=== PATIENT | male | born 1960 | race Caucasian/White ===

== ENCOUNTER → 2021-05-26 | Outpatient (CLI) | payer BC ==
[~2021-05-26] MED LIST: CARI350T PO; GABA-827 PO; HYDR-3248 PO; METF500T17 PO
[2021-05-26 13:37] LABS: BASOPHILS % (AUTO) 1 % (0-1); EOSINOPHILS % (AUTO) 1 % (1-7); LYMPHOCYTES % (AUTO) 33 % (22-44); MEAN CORPUSCULAR HEMOGLOBIN 32.6 pg (27.5-34.5); MEAN CORPUSCULAR HGB CONC 34.1 g/dL (33.2-36.2); MEAN PLATELET VOLUME 7.8 fL (7.4-10.4); MONOCYTES % (AUTO) 6 % (2-9); NEUTROPHILS % (AUTO) 59 % (42-75); PLATELET COUNT 265 x10^3/uL (130-400); RED BLOOD COUNT 4.52 x10^6/uL (4.38-5.82); RED CELL DISTRIBUTION WIDTH 13.6 % (9.4-14.8)
[2021-05-26 13:39] LABS: MICROSCOPIC NOT IND
[2021-05-26 13:49] LABS: CHLORIDE 106 mmol/L (98-107); INTERNATIONAL NORMALIZED RATIO 1.02 (0.93-1.1); PROTHROMBIN TIME 10.9 Seconds (9.6-11.5)
[2021-05-26 14:00] LABS: ALANINE AMINOTRANSFERASE 17 U/L (12-78); ALBUMIN 3.9 g/dL (3.4-5.0); ALKALINE PHOSPHATASE 67 U/L (45-117); ANION GAP 4 mmol/L (5-15); BILIRUBIN,TOTAL 0.4 mg/dL (0.2-1.0); CALCIUM 9.4 mg/dL (8.5-10.1); CREATININE 1.02 mg/dL (0.7-1.3); TOTAL PROTEIN 7.7 g/dL (6.4-8.2)
== END | disposition home or self-care (01) ==
LOC: STAR 12:37
PROVIDERS: ATTEND Neurological Surgery
DX: Z01.810 Encounter for preprocedural cardiovascular examination (principal); Z01.811 Encounter for preprocedural respiratory examination; Z01.812 Encounter for preprocedural laboratory examination; M51.36 Other intervertebral disc degeneration, lumbar region; M48.061 Spinal stenosis, lumbar region without neurogenic claudication; R79.1 Abnormal coagulation profile; R82.90 Unspecified abnormal findings in urine; R94.31 Abnormal electrocardiogram [ECG] [EKG]; M99.13 Subluxation complex (vertebral) of lumbar region; M51.37 Other intervertebral disc degeneration, lumbosacral region; R00.1 Bradycardia, unspecified
CPT/HCPCS: 36415; 71046; 72110; 80053; 81003; 85025; 85610; 85730; 93005

== ENCOUNTER 2021-05-31 05:32 | Inpatient (IN) | payer BC ==
[2021-05-29 10:24] LABS: ANION GAP 4 mmol/L (5-15); CALCIUM 9.2 mg/dL (8.5-10.1); CHLORIDE 107 mmol/L (98-107)
[2021-05-29 10:27] LABS: CREATININE 0.93 mg/dL (0.7-1.3)
[~2021-05-31] VITALS: Ht 180.3 cm; Wt 82.8 kg
[2021-05-31] MEDS ORDERED: EPINEPHRINE 1 MG/ML, 1ML ONE (06:00)
[2021-05-31] MEDS ORDERED: THROMBIN 20,000 UNIT VIAL TP ONE (06:00)
[2021-05-31] MEDS ORDERED: CEFAZOLIN 1,000 MG ONE ×2 (06:00→08:35)
[2021-05-31] MEDS ORDERED: BUPIVACAINE/PF 0.5% ONE (06:00)
[2021-05-31] MEDS ORDERED: GENTAMICIN 80 MG/2 ML ONE (06:00)
[2021-05-31 06:23] VITALS: BP 135/84
[2021-05-31] MEDS ORDERED: MIDAZOLAM 1 MG/ML, 2ML ONE (07:05)
[2021-05-31] MEDS ORDERED: FENTANYL PF 250 MCG/5ML ONE (07:05)
[2021-05-31] MEDS ORDERED: PROPOFOL 100 ML ONE (07:18)
[2021-05-31] MEDS ORDERED: THROMBIN 5,000 UNIT VIAL TP ONE (07:49)
[2021-05-31] MEDS ORDERED: CEFAZOLIN 1,000 MG IVPB ONE (07:49)
[2021-05-31] MEDS ORDERED: BUPIVACAINE/PF-EPI 0.5% 1:200K INFIL ONE (07:49)
[2021-05-31] MEDS ORDERED: GENTAMICIN 80 MG/2 ML IV ONE (07:49)
[2021-05-31] MEDS ORDERED: ROCURONIUM 10MG/ML,5ML ONE (08:35)
[2021-05-31] MEDS ORDERED: ONDANSETRON 2MG/ML, 2ML ONE (08:35)
[2021-05-31] MEDS ORDERED: NEOSTIGMINE 1 MG/ML, 10ML ONE (08:35)
[2021-05-31] MEDS ORDERED: GLYCOPYRROLATE 0.2MG/1ML, 5ML ONE (08:35)
[2021-05-31] MEDS ORDERED: PROPOFOL 10 MG/ML, 20ML ONE (08:35)
[2021-05-31] MEDS ORDERED: DEXAMETHASONE 4 MG/ML, 1ML ONE (08:35)
[2021-05-31] MEDS ORDERED: SUCCINYLCHOLINE 20 MG/ML, 10ML ONE (08:35)
[2021-05-31] MEDS ORDERED: OXYcodone 5 MG/5 ML ORAL.SOL UDC ONE (08:52)
[2021-05-31] MEDS ORDERED: FENTANYL PF 100 MCG/2ML ONE (08:52)
[2021-05-31] MEDS: FENTANYL PF 100 MCG/2ML IV PRN ×2 (08:55→09:12)
[2021-05-31] MEDS ORDERED: hydrALAzine 20 MG/ML, 1ML IV PRN (09:00)
[2021-05-31] MEDS ORDERED: PHARMACY MAY ADJ FOR RENAL FX MC PRN (09:00)
[2021-05-31] MEDS ORDERED: LORazepam 2 MG/ML, 1ML IVPush PRN (09:00)
[2021-05-31] MEDS ORDERED: PROMETHAZINE 25 MG/ML, 1ML IM PRN (09:00)
[2021-05-31] MEDS ORDERED: MAGNESIUM HYDROXIDE 8%, 30ML UDC PO PRN (09:00)
[2021-05-31] MEDS ORDERED: OXYcodone 5 MG/5 ML ORAL.SOL UDC PO PRN (09:00)
[2021-05-31] MEDS ORDERED: MEPERIDINE/PF 25MG/0.5ML IVPush PRN (09:00)
[2021-05-31] MEDS ORDERED: ONDANSETRON 2MG/ML, 2ML IVPush PRN (09:00)
[2021-05-31] MEDS ORDERED: METHOCARBAMOL 1,000 MG in DEXTROSE 5% 100 ML IV ONE (09:00)
[2021-05-31] MEDS ORDERED: LABETALOL 5MG/ML, 20ML IVPush PRN (09:00)
[2021-05-31] MEDS ORDERED: LABETALOL 5MG/ML, 20ML IV PRN (09:00)
[2021-05-31] MEDS ORDERED: HYDROmorphone 1 MG/ML, 1ML INJ IVPush PRN (09:00)
[2021-05-31] MEDS ORDERED: DIPHENHYDRAMINE 50 MG CAPSULE PO PRN (09:00)
[2021-05-31] MEDS ORDERED: OXYcodone/APAP 5/325MG TABLET PO PRN (09:00)
[2021-05-31] MEDS: SODIUM CHLORIDE FLUSH 10ML SYR IVF SCH ×2 (09:00→20:15)
[2021-05-31] MEDS ORDERED: BISACODYL 10 MG SUPP PR PRN (09:00)
[2021-05-31] MEDS ORDERED: ACETAMINOPHEN 325 MG TABLET PO PRN (09:00)
[2021-05-31] MEDS ORDERED: INSULIN REGULAR 100 UNITS/ML, 3ML VIAL SQ-INSULIN PRN (09:00)
[2021-05-31] MEDS ORDERED: MEPERIDINE/PF 25MG/ML,1ML ONE (09:12)
[2021-05-31] MEDS: GABAPENTIN 400 MG CAPSULE PO SCH ×3 (11:04→20:16)
[2021-05-31] MEDS: SENNA/DOCUSATE TABLET PO PRN (11:04)
[2021-05-31] MEDS: CARISOPRODOL 350 MG TABLET PO SCH ×3 (11:04→20:16)
[2021-05-31] MEDS: NS + 20MEQ KCL 1,000 ML IV SCH (11:04)
[2021-05-31] MEDS: metFORMIN 500 MG TABLET PO SCH ×2 (11:04→20:16)
[2021-05-31] MEDS: morphine SULFATE 10 MG/ML, 1ML IVPush PRN ×3 (11:12→23:49)
[2021-05-31 12:45] VITALS: BP 131/71
[2021-05-31] MEDS: HYDROcodone/APAP 10/325 MG TABLET PO PRN ×3 (13:17→22:29)
[2021-05-31] MEDS: CEFAZOLIN PMX 1GM/50ML 50 ML IVPB SCH ×2 (15:34→23:45)
[2021-05-31] MEDS ORDERED: METHOCARBAMOL 750 MG TABLET PO PRN (17:00)
[2021-05-31] MEDS: ONDANSETRON 2MG/ML, 2ML IVPush PRN (18:12)
[2021-05-31 20:18] VITALS: BP 120/70
[2021-06-01] MEDS: HYDROcodone/APAP 10/325 MG TABLET PO PRN ×6 (02:39→23:53)
[2021-06-01 02:53] VITALS: BP 125/73
[2021-06-01] MEDS: morphine SULFATE 10 MG/ML, 1ML IVPush PRN ×4 (04:59→22:54)
[2021-06-01] MEDS: NS + 20MEQ KCL 1,000 ML IV SCH ×2 (04:59→23:53)
[2021-06-01] MEDS: ENOXAPARIN 40 MG/0.4 ML SQ SCH ×2 (05:00→17:44)
[2021-06-01 05:48] LABS: BASOPHILS % (AUTO) 1 % (0-1); EOSINOPHILS % (AUTO) 0 % (1-7); LYMPHOCYTES % (AUTO) 30 % (22-44); MEAN CORPUSCULAR HEMOGLOBIN 32.7 pg (27.5-34.5); MEAN CORPUSCULAR HGB CONC 34.1 g/dL (33.2-36.2); MEAN PLATELET VOLUME 8.1 fL (7.4-10.4); MONOCYTES % (AUTO) 9 % (2-9); NEUTROPHILS % (AUTO) 60 % (42-75); PLATELET COUNT 242 x10^3/uL (130-400); RED BLOOD COUNT 4.22 x10^6/uL (4.38-5.82); RED CELL DISTRIBUTION WIDTH 13.1 % (9.4-14.8)
[2021-06-01 05:49] LABS: ANION GAP 7 mmol/L (5-15); CALCIUM 8.4 mg/dL (8.5-10.1); CHLORIDE 105 mmol/L (98-107); CREATININE 0.93 mg/dL (0.7-1.3)
[2021-06-01] MEDS: CARISOPRODOL 350 MG TABLET PO SCH ×3 (08:51→19:41)
[2021-06-01] MEDS: GABAPENTIN 400 MG CAPSULE PO SCH ×3 (08:51→19:41)
[2021-06-01] MEDS: metFORMIN 500 MG TABLET PO SCH ×2 (08:51→19:41)
[2021-06-01 09:00] VITALS: BP 125/76
[2021-06-01] MEDS: HYDROmorphone 2MG TABLET PO PRN ×2 (09:00→12:58)
[2021-06-01] MEDS: SODIUM CHLORIDE FLUSH 10ML SYR IVF SCH ×2 (09:00→19:41)
[2021-06-01] MEDS: ONDANSETRON 2MG/ML, 2ML IVPush PRN (10:14)
[2021-06-01] MEDS: SENNA/DOCUSATE TABLET PO PRN (14:25)
[2021-06-01 14:30] VITALS: BP 111/78
[2021-06-01 19:44] VITALS: BP 128/80
[2021-06-02] MEDS: morphine SULFATE 10 MG/ML, 1ML IVPush PRN (04:02)
[2021-06-02 04:26] VITALS: BP 122/67
[2021-06-02] MEDS ORDERED: BUPIVACAINE/PF 0.5% ONE (06:25)
[2021-06-02] MEDS ORDERED: VANCOMYCIN 1,000 MG ONE (06:26)
[2021-06-02] MEDS ORDERED: GENTAMICIN 80 MG/2 ML ONE (06:26)
[2021-06-02] MEDS ORDERED: CEFAZOLIN 1,000 MG ONE (06:26)
[2021-06-02] MEDS ORDERED: EPINEPHRINE 1 MG/ML, 1ML ONE (06:26)
[2021-06-02] MEDS ORDERED: CHLORHEXIDINE 15 ML UDC PO ONE (06:30)
[2021-06-02 06:41] LABS: BASOPHILS % (AUTO) 1 % (0-1); EOSINOPHILS % (AUTO) 1 % (1-7); LYMPHOCYTES % (AUTO) 22 % (22-44); MEAN CORPUSCULAR HEMOGLOBIN 32.8 pg (27.5-34.5); MEAN CORPUSCULAR HGB CONC 34.3 g/dL (33.2-36.2); MEAN PLATELET VOLUME 7.9 fL (7.4-10.4); MONOCYTES % (AUTO) 10 % (2-9); NEUTROPHILS % (AUTO) 67 % (42-75); PLATELET COUNT 239 x10^3/uL (130-400); RED BLOOD COUNT 4.27 x10^6/uL (4.38-5.82); RED CELL DISTRIBUTION WIDTH 13.2 % (9.4-14.8)
[2021-06-02] MEDS ORDERED: MIDAZOLAM 1 MG/ML, 2ML ONE (06:43)
[2021-06-02] MEDS ORDERED: FENTANYL PF 250 MCG/5ML ONE (06:43)
[2021-06-02 06:47] LABS: ANION GAP 6 mmol/L (5-15); CALCIUM 8.7 mg/dL (8.5-10.1); CHLORIDE 102 mmol/L (98-107); CREATININE 0.91 mg/dL (0.7-1.3)
[2021-06-02] MEDS ORDERED: FENTANYL PF 100 MCG/2ML ONE ×3 (08:20→10:11)
[2021-06-02] MEDS ORDERED: BUPIVACAINE 0.25% ONE (08:55)
[2021-06-02] MEDS: SODIUM CHLORIDE FLUSH 10ML SYR IVF SCH ×2 (09:00→21:03)
[2021-06-02] MEDS: CARISOPRODOL 350 MG TABLET PO SCH ×3 (09:00→21:02)
[2021-06-02] MEDS: metFORMIN 500 MG TABLET PO SCH ×2 (09:00→21:03)
[2021-06-02] MEDS: GABAPENTIN 400 MG CAPSULE PO SCH ×3 (09:00→21:02)
[2021-06-02] MEDS ORDERED: LORazepam 2 MG/ML, 1ML IVPush PRN (09:30)
[2021-06-02] MEDS ORDERED: PROMETHAZINE 25 MG/ML, 1ML IVPush PRN (09:30)
[2021-06-02] MEDS ORDERED: ALBUTEROL SULFATE 2.5 MG/3 ML NPPB PRN (09:30)
[2021-06-02] MEDS ORDERED: PROMETHAZINE 12.5 MG SUPP PR PRN (09:30)
[2021-06-02] MEDS ORDERED: OXYcodone 5 MG/5 ML ORAL.SOL UDC PO PRN (09:30)
[2021-06-02] MEDS ORDERED: hydrALAzine 20 MG/ML, 1ML IV PRN (09:30)
[2021-06-02] MEDS ORDERED: HYDROmorphone 1 MG/ML, 1ML INJ IVPush PRN (09:30)
[2021-06-02] MEDS ORDERED: ONDANSETRON 2MG/ML, 2ML IVPush PRN (09:30)
[2021-06-02] MEDS ORDERED: DIPHENHYDRAMINE 50 MG/ML, 1ML IVPush PRN ×2 (09:30)
[2021-06-02] MEDS ORDERED: LABETALOL 5MG/ML, 20ML IV PRN ×2 (09:30→12:30)
[2021-06-02] MEDS ORDERED: DIAZEPAM 5 MG/ML, 2ML IVPush PRN (09:30)
[2021-06-02] MEDS ORDERED: ACETAMINOPHEN 325 MG TABLET PO PRN (09:30)
[2021-06-02] MEDS ORDERED: EPHEDRINE 50 MG/ML, 1ML IVPush PRN (09:30)
[2021-06-02] MEDS ORDERED: MEPERIDINE/PF 25MG/0.5ML IVPush PRN (09:30)
[2021-06-02] MEDS ORDERED: MIDAZOLAM 1 MG/ML, 2ML IV PRN (09:30)
[2021-06-02] MEDS: FENTANYL PF 100 MCG/2ML IV PRN ×2 (10:10→10:20)
[2021-06-02] MEDS ORDERED: OXYcodone 5 MG/5 ML ORAL.SOL UDC ONE (10:11)
[2021-06-02] MEDS ORDERED: METHOCARBAMOL 750 MG TABLET ONE (10:33)
[2021-06-02] MEDS ORDERED: MEPERIDINE/PF 25MG/ML,1ML ONE (10:35)
[2021-06-02] MEDS ORDERED: HYDROcodone/APAP 5/325 TABLET PO PRN (12:30)
[2021-06-02] MEDS ORDERED: ONDANSETRON 2MG/ML, 2ML IV PRN (12:30)
[2021-06-02] MEDS ORDERED: PROMETHAZINE 25 MG/ML, 1ML IM PRN (12:30)
[2021-06-02] MEDS: HYDROcodone/APAP 10/325 MG TABLET PO PRN ×3 (12:32→22:13)
[2021-06-02] MEDS: NS + 20MEQ KCL 1,000 ML IV SCH ×2 (12:32→22:16)
[2021-06-02 13:00] VITALS: BP 119/75
[2021-06-02] MEDS: CYCLOBENZAPRINE 10 MG TABLET PO PRN (14:32)
[2021-06-02] MEDS: HYDROmorphone 2 MG/ML, 1ML IVPush PRN ×2 (14:58→21:03)
[2021-06-02] MEDS: CEFAZOLIN PMX 1GM/50ML 50 ML IVPB SCH ×2 (15:15→22:58)
[2021-06-02] MEDS ORDERED: GABAPENTIN 100 MG CAPSULE ONE (15:38)
[2021-06-02 21:08] VITALS: BP 128/79
[2021-06-03 00:24] VITALS: BP 129/74
[2021-06-03] MEDS: HYDROmorphone 2 MG/ML, 1ML IVPush PRN ×6 (00:28→20:23)
[2021-06-03] MEDS: NS + 20MEQ KCL 1,000 ML IV SCH ×2 (01:00→13:23)
[2021-06-03] MEDS: HYDROcodone/APAP 10/325 MG TABLET PO PRN ×6 (02:48→22:37)
[2021-06-03 04:17] VITALS: BP 102/64
[2021-06-03 04:28] LABS: BASOPHILS % (AUTO) 0 % (0-1); EOSINOPHILS % (AUTO) 0 % (1-7); LYMPHOCYTES % (AUTO) 27 % (22-44); MEAN CORPUSCULAR HGB CONC 34.3 g/dL (33.2-36.2); MEAN PLATELET VOLUME 8.1 fL (7.4-10.4); MONOCYTES % (AUTO) 10 % (2-9); NEUTROPHILS % (AUTO) 62 % (42-75); PLATELET COUNT 212 x10^3/uL (130-400); RED BLOOD COUNT 3.86 x10^6/uL (4.38-5.82); RED CELL DISTRIBUTION WIDTH 12.9 % (9.4-14.8)
[2021-06-03 04:37] LABS: ANION GAP 4 mmol/L (5-15); CALCIUM 8.2 mg/dL (8.5-10.1); CHLORIDE 98 mmol/L (98-107)
[2021-06-03] MEDS: ENOXAPARIN 40 MG/0.4 ML SQ SCH (06:28)
[2021-06-03] MEDS: CEFAZOLIN PMX 1GM/50ML 50 ML IVPB SCH ×3 (06:28→22:37)
[2021-06-03 07:03] VITALS: BP 107/65
[2021-06-03] MEDS: SODIUM CHLORIDE FLUSH 10ML SYR IVF SCH ×2 (09:00→21:47)
[2021-06-03] MEDS: CARISOPRODOL 350 MG TABLET PO SCH ×3 (09:40→21:47)
[2021-06-03] MEDS: GABAPENTIN 400 MG CAPSULE PO SCH ×3 (09:40→21:47)
[2021-06-03] MEDS: metFORMIN 500 MG TABLET PO SCH ×2 (09:40→21:47)
[2021-06-03] MEDS: CYCLOBENZAPRINE 10 MG TABLET PO PRN ×2 (09:40→18:12)
[2021-06-03] MEDS: SENNA/DOCUSATE TABLET PO PRN (09:40)
[2021-06-03] MEDS: ONDANSETRON 2MG/ML, 2ML IVPush PRN (12:10)
[2021-06-03] MEDS ORDERED: KETOROLAC 15 MG/1ML IVPush SCH ×2 (13:00→16:30)
[2021-06-03 13:44] VITALS: BP 112/67
[2021-06-03] MEDS ORDERED: KETOROLAC 30 MG/1 ML ONE ×2 (16:01→16:14)
[2021-06-03] MEDS: KETOROLAC 30 MG/1 ML IVPush SCH ×2 (16:38→21:59)
[2021-06-03 18:32] VITALS: BP 96/53
[2021-06-04] MEDS: NS + 20MEQ KCL 1,000 ML IV SCH (01:18)
[2021-06-04] MEDS: CYCLOBENZAPRINE 10 MG TABLET PO PRN (02:05)
[2021-06-04 02:07] VITALS: BP 121/77
[2021-06-04] MEDS: HYDROcodone/APAP 10/325 MG TABLET PO PRN ×3 (02:27→10:26)
[2021-06-04] MEDS: KETOROLAC 30 MG/1 ML IVPush SCH ×2 (04:25→10:26)
[2021-06-04 05:26] LABS: BASOPHILS % (AUTO) 1 % (0-1); EOSINOPHILS % (AUTO) 3 % (1-7); LYMPHOCYTES % (AUTO) 26 % (22-44); MEAN CORPUSCULAR HEMOGLOBIN 32.6 pg (27.5-34.5); MEAN CORPUSCULAR HGB CONC 34.2 g/dL (33.2-36.2); MEAN PLATELET VOLUME 7.8 fL (7.4-10.4); MONOCYTES % (AUTO) 10 % (2-9); NEUTROPHILS % (AUTO) 60 % (42-75); PLATELET COUNT 215 x10^3/uL (130-400); RED BLOOD COUNT 3.61 x10^6/uL (4.38-5.82); RED CELL DISTRIBUTION WIDTH 12.8 % (9.4-14.8)
[2021-06-04] MEDS: CEFAZOLIN PMX 1GM/50ML 50 ML IVPB SCH (06:28)
[2021-06-04] MEDS: ENOXAPARIN 40 MG/0.4 ML SQ SCH (06:28)
[2021-06-04] MEDS: metFORMIN 500 MG TABLET PO SCH (08:40)
[2021-06-04] MEDS: CARISOPRODOL 350 MG TABLET PO SCH (08:40)
[2021-06-04] MEDS: GABAPENTIN 400 MG CAPSULE PO SCH (08:40)
[2021-06-04] MEDS: SODIUM CHLORIDE FLUSH 10ML SYR IVF SCH (08:44)
[2021-06-04 08:45] VITALS: BP 116/69
[2021-06-04] MEDS ORDERED: MAGNESIUM HYDROXIDE 8%, 30ML UDC PO SCH (09:00)
[2021-06-04] MEDS ORDERED: CARI350T PO (09:02)
[2021-06-04] MEDS ORDERED: CEPH500T PO (09:02)
[2021-06-04] MEDS ORDERED: GABA-827 PO (09:02)
[2021-06-04] MEDS ORDERED: HYDR-3248 PO (09:02)
[2021-06-04] MEDS ORDERED: metFORMIN 500 MG TABLET PO SCH (17:00)
== END 2021-06-04 12:10 | disposition home health service (06) | DRG 455 ==
LOC: 4NE 05:32
PROVIDERS: ADMIT Neurological Surgery; ATTEND Neurological Surgery
PROC: 0SG0070 Fusion of Lumbar Vertebral Joint with Autologous Tissue Substitute, Anterior Approach, Anterior Column, Open Approach (ICD-10-PCS; 2021-05-31)
PROC: 4A11X4G Monitoring of Peripheral Nervous Electrical Activity, Intraoperative, External Approach (ICD-10-PCS; 2021-05-31)
PROC: 0SG00A0 Fusion of Lumbar Vertebral Joint with Interbody Fusion Device, Anterior Approach, Anterior Column, Open Approach (ICD-10-PCS; principal; 2021-05-31 07:00)
PROC: 0SG03J1 Fusion of Lumbar Vertebral Joint with Synthetic Substitute, Posterior Approach, Posterior Column, Percutaneous Approach (ICD-10-PCS; 2021-06-02)
PROC: 01NB3ZZ Release Lumbar Nerve, Percutaneous Approach (ICD-10-PCS; 2021-06-02)
PROC: 01NR3ZZ Release Sacral Nerve, Percutaneous Approach (ICD-10-PCS; 2021-06-02)
PROC: 4A11X4G Monitoring of Peripheral Nervous Electrical Activity, Intraoperative, External Approach (ICD-10-PCS; 2021-06-02)
PROC: 0SB43ZZ Excision of Lumbosacral Disc, Percutaneous Approach (ICD-10-PCS; 2021-06-02)
PROC: 8E0W3CZ Robotic Assisted Procedure of Trunk Region, Percutaneous Approach (ICD-10-PCS; 2021-06-02)
DX: M48.062 Spinal stenosis, lumbar region with neurogenic claudication (principal); M43.16 Spondylolisthesis, lumbar region; M51.27 Other intervertebral disc displacement, lumbosacral region; M54.16 Radiculopathy, lumbar region; Z20.822 Contact with and (suspected) exposure to COVID-19; Z88.5 Allergy status to narcotic agent
CPT/HCPCS: 36415; 72100; S0020; 72131; 80048; 85025; 87635; 95938; 95941; C1713; G0378; J0171; J0690; J1100; J1170; J1650; J1885; J2175; J2250; J2405; J2550; J2704; J2710; J3010; J3370; J3480; C1760; C1763; C1769; C1889; J0330; J1580; J2270; J2800